=== PATIENT | female | born 1985 | race American Indian/Alaskan Native ===

== ENCOUNTER 2017-01-01 09:13 | Emergency (ER) | payer BC ==
[2017-01-01 09:24] VITALS: BMI 53.2
[2017-01-01] MEDS ORDERED: Sodium Chloride 0.9% 1,000 ML IV STA (09:33)
--- NOTE | 2017-01-01 09:41 | ED PDOC ---
Arrival/HPI - General Chief Complaint: GI Problem Time Seen by Provider: 01/01/17 09:22 Historian: Patient - History of Present Illness Narrative History of Present Illness (Text): 01/01/17 09:38 This is a morbidly obese 31yo female who present with complaint of nausea and nonbilious/bloody vomiting since Saturday. States she started having dizziness this morning. Also notes right lower back pain since Saturday. States she has not been able to tolerate food or drink since Saturday. +Dysuria. Denies fever, chills , abdominal pain, urinary frequency, melena, hematemesis, hematochezia, chest pain, sick contact, travel. Past Medical History - Provider Review Nursing Documentation Reviewed: Yes - Infectious Disease Hx of Infectious Diseases: None - Tetanus Immunization Tetanus Immunization: Unknown - Past Medical History Past Medical History: No Previous - Cardiac Hx Cardiac Disorders: No - Pulmonary Hx Respiratory Disorders: No - Neurological Hx Neurological Disorder: Yes Hx Dizziness: Yes (today) - HEENT Hx HEENT Disorder: No - Renal Hx Renal Disorder: Yes Other/Comment: born with "weak kidneys". - Endocrine/Metabolic Hx Endocrine Disorders: No - Hematological/Oncological Hx Blood Disorders: No - Integumentary Hx Dermatological Disorder: No - Musculoskeletal/Rheumatological Hx Musculoskeletal Disorders: No - Gastrointestinal Hx Gastrointestinal Disorders: No - Genitourinary/Gynecological Hx Genitourinary Disorders: No - Psychiatric Hx Psychophysiologic Disorder: No Hx Depression: No Hx Emotional Abuse: No Hx Physical Abuse: No Hx Substance Use: No - Past Surgical History Past Surgical History: No Previous - Surgical History Hx Section: Yes (2008) - Anesthesia Hx Anesthesia: Yes Hx Anesthesia Reactions: No - Suicidal Assessment Feels Threatened In Home Enviroment: No Family/Social History - Physician Review Nursing Documentation Reviewed: Yes Family/Social History: Unknown Family HX Smoking Status: Former Smoker Hx Alcohol Use: Yes Frequency of alcohol use: Socially Hx Substance Use: No Hx Substance Use Treatment: No Allergies/Home Meds Allergies/Adverse Reactions: Allergies No Known Allergies Allergy (Verified 01/01/17 09:24) Review of Systems - Physician Review All systems were reviewed & negative as marked: Yes - Review of Systems Constitutional: Normal Eyes: Normal ENT: Normal Respiratory: Normal Cardiovascular: Normal Gastrointestinal: Nausea, Vomiting. absent: Abdominal Pain, Constipation, Diarrhea, Hematochezia, Hematemesis Genitourinary Female: Normal Musculoskeletal: Back Pain Skin: Normal Neurological: Dizziness. absent: Headache, Focal Weakness Endocrine: Normal Hemo/Lymphatic: Normal Psychiatric: Normal Physical Exam Vital Signs Reviewed: Yes Vital Signs Temp Pulse Resp BP Pulse Ox 01/01/17 09:28 98.5 F 75 19 121/85 98 Temperature: Afebrile Blood Pressure: Normal Pulse: Regular Respiratory Rate: Normal Appearance: Positive for: Well-Appearing, Non-Toxic, Comfortable Pain Distress: None Mental Status: Positive for: Alert and Oriented X 3 - Systems Exam Head: Present: Atraumatic, Normocephalic Pupils: Present: PERRL Extroacular Muscles: Present: EOMI Conjunctiva: Present: Normal Mouth: Present: Moist Mucous Membranes Neck: Present: Normal Range of Motion Respiratory/Chest: Present: Clear to Auscultation, Good Air Exchange. No: Respiratory Distress, Accessory Muscle Use Cardiovascular: Present: Regular Rate and Rhythm, Normal S1, S2. No: Murmurs Abdomen: Present: Normal Bowel Sounds, Other (Soft). No: Tenderness, Distention , Peritoneal Signs, Rebound, Guarding, McBurney's Point Tender, Rovsing's Sign Present Back: Present: Paraspinal Tenderness (Right sided paraspinous tenderness). No: CVA Tenderness Upper Extremity: Present: Normal Inspection. No: Cyanosis, Edema Lower Extremity: Present: Normal Inspection. No: Edema Neurological: Present: GCS=15, CN II-XII Intact, Speech Normal, Motor Func Grossly Intact, Normal Sensory Function, Normal Cerebellar Funct, Norm Deep Tendon Reflexes, Gait Normal, Memory Normal, Normal 2Pt Descrimination, Other ( No focal weakness) Skin: Present: Warm, Dry, Normal Color. No: Rashes Psychiatric: Present: Alert, Oriented x 3, Normal Insight, Normal Concentration Medical Decision Making ED Course and Treatment: 01/01/17 10:59 PT presented for stated histoy. Abdominal exam was benign. She was hydrated and antiemetics was given. Lab was unremarkable and she had UTI. She ws noted to tolerate fluid in ED. Her back pain improved with medication. Tx with Macrobid for UTI. Referred to her PMD. TRT ED for any new or worsening symptoms. Rx of MAcrobid and Zofran given. - Lab Interpretations Lab Results: 01/01/17 09:30 01/01/17 09:30 Lab Results 01/01/17 10:30: Urine Color Light yellow, Urine Appearance Cloudy, Urine pH 6.0 , Ur Specific [place] 1.015, Urine Protein Negative, Urine Glucose (UA) Negative , Urine Ketones Negative, Urine Blood Trace-intact H, Urine Nitrate Positive H, Urine Bilirubin Negative, Urine Urobilinogen 1.0 H, Ur Leukocyte Esterase Small H, Urine RBC 1 - 3, Urine WBC 15 - 20, Ur Epithelial Cells 10 - 12, Urine Bacteria Many 01/01/17 09:30: Sodium 140, Potassium 3.7, Chloride 102, Carbon Dioxide 31, Anion Gap 11, BUN 12, Creatinine 0.8, Est GFR ( Amer) > 60, Est GFR (Non- Af Amer) > 60, Random Glucose 95, Calcium 9.1, Total Bilirubin 0.9, AST 34, ALT 37, Alkaline Phosphatase 52, Lactate Dehydrogenase 579, Total Creatine Kinase 145, Troponin I < 0.01, Total Protein 7.7, Albumin 3.9, Globulin 3.8, Albumin/ Globulin Ratio 1.0 L, Lipase 15 L 01/01/17 09:30: PT 10.4, INR 0.96, APTT 28.6 01/01/17 09:30: WBC 6.5 D, RBC 4.18, Hgb 12.2, Hct 35.1 L, MCV 84.0, MCH 29.2, MCHC 34.8, RDW 13.1, Plt Count 301, MPV 10.6, Gran % 64.9, Lymph % (Auto) 28.8, [place] % (Auto) 4.8, Eos % (Auto) 1.2 L, Baso % (Auto) 0.3, Gran # 4.18, Lymph # 1.9, [place] # 0.3, Eos # 0.1, Baso # 0.02 - Medication Orders Current Medication Orders: Discontinued Medications Famotidine (Pepcid) 20 mg IVP STAT STA Stop: 01/01/17 09:34 Last Admin: 01/01/17 09:48 Dose: 20 mg Sodium Chloride (Sodium Chloride 0.9%) 1,000 mls @ 1,000 mls/hr IV .Q1H STA Stop: 01/01/17 10:32 Last Admin: 01/01/17 09:49 Dose: 1,000 mls/hr Ketorolac Tromethamine (Toradol) 30 mg IVP STAT STA Stop: 01/01/17 09:34 Last Admin: 01/01/17 10:33 Dose: 30 mg Nitrofurantoin Macrocrystals (Macrobid) 100 mg PO ONCE STA Stop: 01/01/17 10:39 Last Admin: 01/01/17 10:54 Dose: 100 mg Ondansetron HCl (Zofran Inj) 4 mg IVP STAT STA Stop: 01/01/17 09:34 Last Admin: 01/01/17 09:49 Dose: 4 mg Disposition/Present on Arrival - Present on Arrival Any Indicators Present on Arrival: No History of DVT/PE: No History of Uncontrolled Diabetes: No Urinary Catheter: No History of Decub. Ulcer: No History Surgical Site Infection Following: None - Disposition Have Diagnosis and Disposition been Completed?: Yes Diagnosis: UTI (urinary tract infection), Nausea & vomiting Disposition: HOME/ ROUTINE Disposition Time: 11:05 Patient Plan: Discharge Patient Problems: Current Active Problems Problem Status Onset Nausea & vomiting Acute UTI (urinary tract infection) Acute Condition: STABLE Discharge Instructions (ExitCare): Urinary Tract Infection in Women (ED) Additional Instructions: Follow BLAND dit and drink plenty of fluid Follow up with your doctor Return to ED for any new or worsening symptoms Prescriptions: Ibuprofen [Motrin Tab] 600 mg PO Q6 #20 tab Nitrofurantoin Macrocrystals [Macrobid] 100 mg PO BID #14 cap Ondansetron ODT [Zofran ODT] 4 mg PO Q8 #7 odt Referrals: PCP,NO [Primary Care Provider] - Follow up with primary
[2017-01-01 09:45] LABS: ADD MANUAL DIFF? NO
[2017-01-01 09:49] LABS: BASO # 0.02 [, K/mm3] (0.0-2.0); BASO % 0.3 % (0.0-3.0); EOS # 0.1 (0.0-0.7); EOS % 1.2 % (1.5-5.0); GRAN # 4.18 (1.4-6.5); GRAN % 64.9 % (50.0-68.0); HEMATOCRIT 35.1 % (36.0-48.0); LYMPH # 1.9 (1.2-3.4); LYMPH % 28.8 % (22.0-35.0); MEAN CORPUSCULAR HEMOGLOBIN 29.2 pg (25.0-35.0); MEAN CORPUSCULAR HGB CONC 34.8 g/dl (31.0-37.0); MEAN PLATELET VOLUME 10.6 fl (7.0-11.0); MONO # 0.3 (0.1-0.6); MONO % 4.8 % (1.0-6.0); PLATELET COUNT 301 [, 10^3/uL] (120.0-450.0); RED CELL DISTRIBUTION WIDTH 13.1 % (11.5-14.5); WHITE BLOOD COUNT 6.5 [, 10^3/ul] (4.5-11.0)
[2017-01-01 09:58] LABS: INR 0.96 (0.93-1.08); PARTIAL THROMBOPLASTIN TIME 28.6 Seconds (23.7-30.8)
[2017-01-01 10:00] LABS: ALKALINE PHOSPHATASE 52 U/L (38-133); ALT/SGPT 37 U/L (7-56); AST/SGOT 34 U/L (15-39); BILIRUBIN,TOTAL 0.9 mg/dL (0.2-1.3); BLOOD UREA NITROGEN 12 mg/dL (7-21); CALCIUM 9.1 mg/dL (8.4-10.5); CARBON DIOXIDE 31 mmol/L (21-33); CHLORIDE 102 mmol/L (98-107); GFR AFRICAN-AMERICAN > 60; GLUCOSE,RANDOM 95 mg/dL (70-110); LIPASE 15 U/L (23-300); POTASSIUM 3.7 mmol/L (3.6-5.0); SODIUM 140 mmol/L (132-148); TOTAL PROTEIN 7.7 g/dL (5.8-8.3)
[2017-01-01 10:12] LABS: TROPONIN I < 0.01 ng/mL
[2017-01-01 10:36] LABS: URINE BILIRUBIN NEGATIVE (NEGATIVE); URINE BLOOD TRACE-INTACT (NEGATIVE); URINE GLUCOSE (UA) NEGATIVE (NEGATIVE); URINE KETONE NEGATIVE (NEGATIVE); URINE LEUKOCYTE ESTERASE SMALL Leu/uL (NEGATIVE); URINE PROTEIN NEGATIVE mg/dL (<30 mg/dL)
[2017-01-01 10:41] LABS: URINE APPEARANCE CLOUDY (CLEAR); URINE COLOR LIGHT YELLOW (YELLOW)
[2017-01-01 10:42] LABS: URINE BACTERIA MANY (NEG); URINE WBC 15 - 20 /hpf (0-6)
[2017-01-01 11:23] VITALS: BP 137/78; PULSE 78; RESP 18; TEMP 98.9; O2SAT 99
== END 2017-01-01 11:23 | disposition home or self-care (01) ==
LOC: ED 09:13
DX: N39.0 Urinary tract infection, site not specified (principal); R11.2 Nausea with vomiting, unspecified
CPT/HCPCS: 80053; 81001; 82550; 83615; 83690; 84484; 85025; 85610; 85730; 87086; 96361; 96374; 96375; 99284; J1885; J2405; J7040